=== PATIENT | female | born 1990 | race American Indian/Alaskan Native ===

== ENCOUNTER 2018-09-30 04:25 | Emergency (ER) | payer MEDICAID ==
[2018-09-30] MEDS ORDERED: NACL 0.9% 1000 ML 1,000 ML IV ONE ×2 (05:19→06:48)
[2018-09-30 05:22] LABS: Basophils # (Auto) 0.1 K/mm3 (0.0-0.1); Basophils % (Auto) 0.7 % (0.0-1.8); Eosinophils % (Auto) 0.4 % (0.0-4.3); Hematocrit 23.9 % (30.3-42.9); Hemoglobin 7.2 gm/dl (10.1-14.3); Lymphocytes # (Auto) 1.1 K/mm3 (1.2-5.4); Lymphocytes % (Auto) 14.3 % (13.4-35.0); Mean Corpuscular HGB Conc 30 % (30-34); Monocytes # (Auto) 0.4 K/mm3 (0.0-0.8); Monocytes % (Auto) 4.9 % (0.0-7.3); Platelet Count 460 K/mm3 (140-440); Red Blood Count 3.55 M/mm3 (3.65-5.03)
[2018-09-30 05:27] LABS: Bacteria,Urine 2+ /HPF (Negative); Bilirubin,Urine NEG (Negative); Blood,Urine LG (Negative); Color,Urine Red (Yellow); Urobilinogen,Urine < 2.0 mg/dL (<2.0)
[2018-09-30 05:36] LABS: Mean Corpuscular Volume 67 fl (79-97)
[2018-09-30 05:36] LABS: Protein,Urine >500 mg/dL (Negative); RBC,Urine > 182.0 /HPF (0.0-6.0)
[2018-09-30 05:46] LABS: Alanine Aminotransferase 5 units/L (7-56); Albumin 4.2 g/dL (3.9-5); BUN/Creatinine Ratio 25; Blood Urea Nitrogen 15 mg/dL (7-17); Calcium 8.3 mg/dL (8.4-10.2); Hemolysis Index 22
--- NOTE | 2018-09-30 08:19 | Emergency Department Report ---
HPI - General Chief Complaint: Abdominal Pain Time Seen by Provider: 09/30/18 06:46 - HPI HPI: Room 24 The patient is a 28-year-old female presenting with chief complaint of vaginal bleeding. The patient states S evening at approximately 20:00 she began having intermittent pelvic cramping and back pain and then developed vaginal bleeding. Patient states she's been passing clots. The patient states she's gone through 5 pads since 20:00 yesterday. Patient states she recently took a test which was positive a few days ago, but has not yet seen an [employer]. The patient says her last menstrual cycle occurred 08/07/2018. There has been no history of fever Location: Pelvis Duration: [See above] Quality: Cramping Severity: Moderate Modifying factors: [see above] Context: [see above] Mode of transportation: [not driving] ED Past Medical Hx - Past Medical History Previous Medical History?: Yes Additional medical history: Hypothyroidism, anemia - Surgical History Past Surgical History?: Yes Additional Surgical History: thyroidectomy, C/Sx2 - Family History Family history: no significant - Social History Smoking Status: Never Smoker Substance Use Type: None - Medications Home Medications: Home Medications Medication Instructions Recorded Confirmed Last Taken Type HYDROcodone/APAP 5-325 [Blanchard 1 - 2 each PO Q6HR PRN #14 tablet 09/30/18 Unknown Rx 5/325] Nitrofurantoin Monohyd/M-Cryst 100 mg PO BID #14 capsule 09/30/18 Unknown Rx [Macrobid 100 mg Capsule] ED Review of Systems ROS: Stated complaint: MISCARRIAGE/LIGHTHEADED/CHILLS/LOSS OF BLOOD Other details as noted in HPI Constitutional: no symptoms reported Eyes: denies: eye pain ENT: denies: throat pain Respiratory: no symptoms reported Cardiovascular: denies: chest pain Endocrine: no symptoms reported Gastrointestinal: abdominal pain Genitourinary: abnormal menses Musculoskeletal: back pain Neurological: denies: headache Physical Exam - Physical Exam Vital Signs: Vital Signs 09/30/18 09/30/18 04:30 04:31 Temperature 98.0 F 98 F Pulse Rate 115 H 113 H Respiratory 18 18 Rate Blood Pressure 105/59 105/59 O2 Sat by Pulse 100 100 Oximetry Physical Exam: GENERAL: The patient is well-developed well-nourished female lying on stretcher not appearing to be in acute distress. [] HEENT: Normocephalic. Atraumatic. Extraocular motions are intact. Patient has moist mucous membranes. NECK: Supple. Trachea midline CHEST/LUNGS: Clear to auscultation. There is no respiratory distress noted. HEART/CARDIOVASCULAR: Regular. There is no tachycardia. There is no gallop rub or murmur. ABDOMEN: Abdomen is soft, nontender. Patient has normal bowel sounds. There is no abdominal distention. SKIN: There is no rash. There is no edema. There is no diaphoresis. NEURO: The patient is awake, alert, and oriented. The patient is cooperative. The patient has normal speech MUSCULOSKELETAL: There is no evidence of acute injury. ED Course Vital Signs 09/30/18 09/30/18 04:30 04:31 Temperature 98.0 F 98 F Pulse Rate 115 H 113 H Respiratory 18 18 Rate Blood Pressure 105/59 105/59 O2 Sat by Pulse 100 100 Oximetry - Consultations Consultation #1: 09/30/18 09:05 [employer] paged (1st page answered by manager medicare. Will have Dr. Watson callback) 09/30/18 09:[address] Watson-will evaluate 09/30/18 10:[address] Watson-Will administer methotrexate and the patient can be discharged home ED Medical Decision Making - Lab Data Result diagrams: 09/30/18 05:06 09/30/18 05:06 Laboratory Tests 09/30/18 09/30/18 09/30/18 05:06 05:06 05:06 WBC 7.8 RBC 3.55 L Hgb 7.2 L Hct 23.9 L MCV 67 L MCH 20 L MCHC 30 RDW 21.0 H Plt Count 460 H Lymph % (Auto) 14.3 [place] % (Auto) 4.9 Eos % (Auto) 0.4 Baso % (Auto) 0.7 Lymph # 1.1 L [place] # 0.4 Eos # 0.0 Baso # 0.1 Seg Neutrophils % 79.7 H Seg Neutrophils # 6.2 Sodium 134 L Potassium 4.0 Chloride 98.9 Carbon Dioxide 20 L Anion Gap 19 BUN 15 Creatinine 0.6 L Estimated GFR > 60 BUN/Creatinine Ratio 25 Glucose 107 H Calcium 8.3 L Total Bilirubin 0.50 AST 19 ALT 5 L Alkaline Phosphatase 24 L Total Protein 7.3 Albumin 4.2 Albumin/Globulin Ratio 1.4 HCG, Quant 72606 H Urine Color Urine Turbidity Urine pH Ur Specific [place] Urine Protein Urine Glucose (UA) Urine Ketones Urine Blood Urine Nitrite Urine Bilirubin Urine Urobilinogen Ur Leukocyte Esterase Urine WBC (Auto) Urine RBC (Auto) Urine Bacteria (Auto) Blood Type Ord Rhogam Gestat Weeks 09/30/18 09/30/18 05:09 08:08 WBC RBC Hgb Hct MCV MCH MCHC RDW Plt Count Lymph % (Auto) [place] % (Auto) Eos % (Auto) Baso % (Auto) Lymph # [place] # Eos # Baso # Seg Neutrophils % Seg Neutrophils # Sodium Potassium Chloride Carbon Dioxide Anion Gap BUN Creatinine Estimated GFR BUN/Creatinine Ratio Glucose Calcium Total Bilirubin AST ALT Alkaline Phosphatase Total Protein Albumin Albumin/Globulin Ratio HCG, Quant Urine Color Red Urine Turbidity Cloudy Urine pH 6.0 Ur Specific [place] 1.030 Urine Protein >500 Urine Glucose (UA) 50 Urine Ketones Tr Urine Blood Lg Urine Nitrite Neg Urine Bilirubin Neg Urine Urobilinogen < 2.0 Ur Leukocyte Esterase Neg Urine WBC (Auto) 16.0 H Urine RBC (Auto) > 182.0 Urine Bacteria (Auto) 2+ Blood Type AB POSITIVE Ord Rhogam Gestat Weeks Rh pos - Radiology Data Radiology results: report reviewed (pelvic ultrasound), image reviewed (pelvic ultrasound) [address] [address] Ultrasound Report Signed Patient: MANDI OATES MR#: [id number] : 1990 Acct:[id number] Age/Sex: 28 / F ADM Date: 09/30/18 Loc: ED Attending Dr: Ordering Physician: NATHALY RECINOS MD Date of Service: 09/30/18 Procedure(s): US OB transvaginal Accession Number(s): [id number] cc: NATHALY RECINOS MD PROCEDURE: US OB TRANSVAGINAL TECHNIQUE: Early obstetrical ultrasound. Transabdominal and transvaginal imaging performed. HISTORY: 8 weeks preg with bleeding COMPARISON: None FINDINGS: Uterus measures 11.4 x 8.9 x 7.1 cm. There is a very thickened heterogeneous endometrium measuring 3.7 cm. No gestational sac is seen in the uterus. Findings could represent blood clots in the endometrium. There is a tiny amount of free fluid in the left adnexa. Separate from the ovary, abutting the uterus there is a saclike structure with internal echoes. This may be a gestational sac. There is no associated mass. It is surrounded by fluid. It is possible that this represents a gestational sac. 5 roughly corresponds to 5 weeks 2 days gestational age. I cannot confirm a pole or yolk sac. Right ovary measures 3.2 x 1.3 x 2.4 cm. Left ovary measures 2. 2.0 x 2.2 cm. There is a dominant follicle/corpus luteal cyst in the left ovary measures 1.3 cm. IMPRESSION: Thickened heterogeneous endometrium measuring over 3 cm. This may represent blood clots in the endometrial cavity. In addition there is a saclike structure in the left adnexa concerning for an ectopic . Specifically this is a saclike structure floating and some left adnexal free fluid. Its measurements roughly correspond to 5 weeks 2 days. It is separate from the left ovary and not associated with an adnexal mass. Given this appearance, I cannot exclude an intra-abdominal ectopic . Dr. Recinos was notified of these findings 09/30/2017 at 8:45 AM EST. This document is electronically signed by Aminah Henriquez MD., September 30 2018 09:03:01 AM ET Transcribed By: [facility] Dictated By: AMINAH HENRIQUEZ MD Electronically Authenticated By: AMINAH HENRIQUEZ MD Signed Date/Time: 09/30/18903 DD/ 5 TD/TT: 09/30/18825 - Differential Diagnosis spontaneous , threatened Critical care attestation.: If time is entered above; I have spent that time in minutes in the direct care of this critically ill patient, excluding procedure time. ED Disposition Clinical Impression: Ectopic , UTI (urinary tract infection) Disposition: DC-01 TO HOME OR SELFCARE Is pt being admited?: No Does the pt Need Aspirin: No Condition: Stable Instructions: Abdominal Pain (ED) Additional Instructions: Return to the emergency department immediately should you develop worsening symptoms, fever, inability to tolerate food or liquid or any other concerns. Prescriptions: HYDROcodone/APAP 5-325 [Blanchard 5/325] 1 - 2 each PO Q6HR PRN #14 tablet PRN Reason: Pain Nitrofurantoin Monohyd/M-Cryst [Macrobid 100 mg Capsule] 100 mg PO BID #14 capsule Referrals: PRIMARY CARE, [Primary Care Provider] - 3-5 Days JAMES WATSON MD [Staff Physician] - 3-5 Days (Dr. Watson is an [employer]. Please follow up with him for further evaluation) Time of Disposition: 11:02
--- NOTE | 2018-09-30 08:56 | Ultrasound Report ---
PROCEDURE: US OB <= 14 WEEKS FETUS TECHNIQUE: Early obstetrical ultrasound. Transabdominal and transvaginal imaging performed. HISTORY: 8 weeks preg with bleeding COMPARISON: None FINDINGS: Uterus measures 11.4 x 8.9 x 7.1 cm. There is a very thickened heterogeneous endometrium measuring 3. 7 cm. No gestational sac is seen in the uterus. Findings could represent blood clots in the endometr ium. There is a tiny amount of free fluid in the left adnexa. Separate from the ovary, abutting the uterus , there is a saclike structure with internal echoes. This may be a gestational sac. There is no assoc iated mass. It is surrounded by fluid. It is possible that this represents a gestational sac. Size ro ughly corresponds to 5 weeks 2 days gestational age. I cannot confirm a pole or yolk sac. Right ovary measures 3.2 x 1.3 x 2.4 cm. Left ovary measures 2. 2.0 x 2.2 cm. There is a dominant fol licle/corpus luteal cyst in the left ovary measures 1.3 cm. IMPRESSION: Thickened heterogeneous endometrium measuring over 3 cm. This may represent blood clots in the endome trial cavity. In addition there is a saclike structure in the left adnexa concerning for an ectopic . Spec ifically this is a saclike structure floating and some left adnexal free fluid. Its measurements roug hly correspond to 5 weeks 2 days. It is separate from the left ovary and not associated with an adnex al mass. Dr. Kim was notified of these findings 09/30/2017 at 8:45 AM EST. This document is electronically signed by Aminah Henriquez MD., September 30 2018 08:54:37 AM ET
--- NOTE | 2018-09-30 09:04 | Ultrasound Report ---
PROCEDURE: US OB TRANSVAGINAL TECHNIQUE: Early obstetrical ultrasound. Transabdominal and transvaginal imaging performed. HISTORY: 8 weeks preg with bleeding COMPARISON: None FINDINGS: Uterus measures 11.4 x 8.9 x 7.1 cm. There is a very thickened heterogeneous endometrium measuring 3. 7 cm. No gestational sac is seen in the uterus. Findings could represent blood clots in the endometr ium. There is a tiny amount of free fluid in the left adnexa. Separate from the ovary, abutting the uterus there is a saclike structure with internal echoes. This may be a gestational sac. There is no associ ated mass. It is surrounded by fluid. It is possible that this represents a gestational sac. 5 roughl y corresponds to 5 weeks 2 days gestational age. I cannot confirm a pole or yolk sac. Right ovary measures 3.2 x 1.3 x 2.4 cm. Left ovary measures 2. 2.0 x 2.2 cm. There is a dominant fol licle/corpus luteal cyst in the left ovary measures 1.3 cm. IMPRESSION: Thickened heterogeneous endometrium measuring over 3 cm. This may represent blood clots in the endome trial cavity. In addition there is a saclike structure in the left adnexa concerning for an ectopic . Spec ifically this is a saclike structure floating and some left adnexal free fluid. Its measurements roug hly correspond to 5 weeks 2 days. It is separate from the left ovary and not associated with an adnex al mass. Given this appearance, I cannot exclude an intra-abdominal ectopic . Dr. Kim was notified of these findings 09/30/2017 at 8:45 AM EST. This document is electronically signed by Aminah Henriquez MD., September 30 2018 09:03:01 AM ET
[2018-09-30 10:35] VITALS: BP 104/59
--- NOTE | 2018-09-30 11:16 | Consultation ---
History of Present Illness Consult date: 09/30/18 Requesting physician: NATHALY RECINOS Reason for consult: early problem (possible ectopic ) History of present illness: This is a 28-year-old black female para 08/31/2001 whose last menstrual period was 08/07/2018. Patient states that she discovered she was approximately week ago. And on yesterday started having vaginal bleeding and cramping dizziness. Patient came to the emergency room approximately 3 AM the workup included an ultrasound beta-hCG and exam. Patient's pelvic ultrasound showed an empty uterus with a thickened endometrium versus blood clots and a possible gestational sac left adnexa consistent with 5 weeks 2 weeks gestation no fetus seen. Patient beta-hCG was 67,028. 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 Social history: denies: smoking, alcohol abuse - Obstetrical History : 4 Para: 3 Hx # Term Pregnancies: 2 Number of Pregnancies: 1 ( demise from NEC) Spontaneous Abortions: 0 Induced : 0 Number of Living Children: 2 ( demise from NEC) Medications and Allergies Allergies Allergy/AdvReac Type Severity Reaction Status Date / Time No Known Allergies Allergy Unverified 09/30/18 04:29 Home Medications Medication Instructions Recorded Confirmed Last Taken Type HYDROcodone/APAP 5-325 [[place]anagan 1 - 2 each PO Q6HR PRN #14 tablet 09/30/18 Unknown Rx 5/325] Nitrofurantoin Monohyd/M-Cryst 100 mg PO BID #14 capsule 09/30/18 Unknown Rx [Macrobid 100 mg Capsule] Active Meds: Active Medications Methotrexate (Methotrexate) 81 mg 50 mg/m2 (81 mg) IM ONCE ONE Stop: 09/30/18 10:57 Review of Systems Constitutional: other (see previous review of systems) - Vital Signs Vital signs: Vital Signs Temp Pulse Resp BP Pulse Ox 98.0 F 115 H 18 105/59 100 09/30/18 04:30 09/30/18 04:30 09/30/18 04:30 09/30/18 04:30 09/30/18 04:30 Temp Pulse Resp BP Pulse Ox 98 F 84 14 104/59 100 03/03/19 04:31 09/30/18 10:31 09/30/18 10:31 09/30/18 10:31 09/30/18 10:31 - Physical Exam Breasts: Positive: deferred Cardiovascular: Regular rate Lungs: Positive: Normal air movement Abdomen: Positive: normal appearance, soft. Negative: tenderness, guarding Genitourinary (Female): Positive: other Results Result Diagrams: 09/30/18 05:06 09/30/18 05:06 Abnormal lab results 09/30/18 09/30/18 09/30/18 Range/Units 05:06 05:06 05:06 RBC 3.55 L (3.65-5.03) M/mm3 Hgb 7.2 L (10.1-14.3) gm/dl Hct 23.9 L (30.3-42.9) % MCV 67 L (79-97) fl MCH 20 L (28-32) pg RDW 21.0 H (13.2-15.2) % Plt Count 460 H (140-440) K/mm3 Lymph # 1.1 L (1.2-5.4) K/mm3 Seg Neutrophils % 79.7 H (40.0-70.0) % Sodium 134 L (137-145) mmol/L Carbon Dioxide 20 L (22-30) mmol/L Creatinine 0.6 L (0.7-1.2) mg/dL Glucose 107 H (65-100) mg/dL Calcium 8.3 L (8.4-10.2) mg/dL ALT 5 L (7-56) units/L Alkaline Phosphatase 24 L (35-129) units/L HCG, Quant 21716 H (0-4) mIU/mL Urine WBC (Auto) (0.0-6.0) /HPF 09/30/18 Range/Units 05:09 RBC (3.65-5.03) M/mm3 Hgb (10.1-14.3) gm/dl Hct (30.3-42.9) % MCV (79-97) fl MCH (28-32) pg RDW (13.2-15.2) % Plt Count (140-440) K/mm3 Lymph # (1.2-5.4) K/mm3 Seg Neutrophils % (40.0-70.0) % Sodium (137-145) mmol/L Carbon Dioxide (22-30) mmol/L Creatinine (0.7-1.2) mg/dL Glucose (65-100) mg/dL Calcium (8.4-10.2) mg/dL ALT (7-56) units/L Alkaline Phosphatase (35-129) units/L HCG, Quant (0-4) mIU/mL Urine WBC (Auto) 16.0 H (0.0-6.0) /HPF All other labs normal. Ultrasound: report reviewed Assessment and Plan - Patient Problems (1) Graves' disease Status: Resolved (2) Hypothyroid Status: Acute Qualifiers: Hypothyroidism type: acquired Qualified Code(s): E03.9 - Hypothyroidism, unspecified Plan to address problem: She does state that she has been without medication for the past 6 months due to insurance problems. Encouraged patient to return to primary care physician stressed importance of thyroid replacement medication. (3) Ectopic Status: Acute Qualifiers: Location of ectopic : tubal Intrauterine status: without intrauterine Laterality: left Qualified Code(s): O00.102 - Left tubal without intrauterine Plan to address problem: Discussed with the patient the diagnosis of ectopic and the risks of possible rupture. Discussed both medical and surgical intervention. Discussed risks of surgical intervention with the possibility of no ectopic seen. Discussed with the patient that she is candidate for methotrexate treatment. Discussed the nature of the medication. Including that is a chemotherapy drug with risk of nausea vomiting damage to rapidly reproducing cells in her GI tract and hair. Also told her those risks of low with a 1 dose treatment. Patient agrees to proceed with methotrexate treatment. Patient to follow-up in office in 3 days. Discussed the need to follow her beta hCG to 0. Patient be discharged with precautions to call for severe pain and severe vaginal bleeding, nausea vomiting. She will receive the methotrexate treatment in the emergency room
== END 2018-09-30 13:02 | disposition home or self-care (01) ==
LOC: ED 04:25
DX: O00.90 Unspecified ectopic pregnancy without intrauterine pregnancy (principal); O23.41 Unspecified infection of urinary tract in pregnancy, first trimester; E03.9 Hypothyroidism, unspecified; Z3A.01 Less than 8 weeks gestation of pregnancy
CPT/HCPCS: 36415; 76801; 76817; 80053; 81001; 84702; 85025; 86900; 86901; 93005; 93010; 96372; 99284; J7030; J9260